=== PATIENT | female | born 1950 | race Caucasian/White ===

== ENCOUNTER 2016-12-16 20:20 | Emergency (ER) | payer OTHER, MEDICARE ==
--- NOTE | 2016-12-16 20:29 | PDOC ---
History of Present Illness - History of Present Illness Initial Comments: 12/16/16 21:34 Patient is a 66 year old female with significant medical hx of hypothyroidism and hypertension who is presenting to the ED with intermittent chest pain for three days. Two days ago the patient had some mild chest pain that returned today. She complains of centralized chest pain with some radiation to her right chest, specifically beneath her right breast, that she characterizes as a burning sensation. The patient states that the burning she feels is similar to the burning experienced during exercise. She notes that the past two days she has been cleaning out her pool which involved lifting heavy material. Patient reports that her pain worsened after a hot shower today but denies any worsening with deep breath or movement. The patient endorses some increased belching and having a lot of stressors in her life right now. She states that she hasnt eaten much in the past week due to stress and endorses some constipation. Denies cough, shortness of breath, generalized weakness, fever, chills, nausea, vomiting, diarrhea. Patient reports a history of gastritis when she was younger. PCP: Benjamin Vega MD Social Hx: Former tobacco smoker for 15 years. FHx: Mother of [place]. Sister had a stroke in her late 40s and is a diabetic. Allergies: Erythromycin base <Chelle Thomas - Last Filed: 12/16/16 21:39> <Laquita Martinez - Last Filed: 12/17/16 06:27> - General Chief Complaint: Pain Stated Complaint: EPIGASTRIC PAIN Time Seen by Provider: 12/16/16 20:23 Past History <Chelle Thomas - Last Filed: 12/16/16 21:39> - Past Medical History Anemia: No Asthma: No Cancer: No Cardiac Disorders: No CVA: No COPD: No CHF: No Dementia: No Diabetes: No GI Disorders: No Disorders: No HTN: Yes Hypercholesterolemia: No Liver Disease: No Seizures: No Thyroid Disease: Yes (HYPOTHYROIDISM) - Surgical History Abdominal Surgery: No Appendectomy: No Cardiac Surgery: No Cholecystectomy: No Lung Surgery: No Neurologic Surgery: No Orthopedic Surgery: No - Psycho/Social/Smoking Cessation Hx Smoking History: Former smoker Have you smoked in the past 12 months: No Number of Cigarettes Smoked Daily: 0 If you are a former smoker, when did you quit?: 20 YEARS Hx Alcohol Use: Yes Drug/Substance Use Hx: No Substance Use Type: Alcohol Hx Substance Use Treatment: No <Laquita Martinez - Last Filed: 12/17/16 06:27> - Past Medical History Allergies/Adverse Reactions: Allergies Allergy/AdvReac Type Severity Reaction Status Date / Time erythromycin base AdvReac Nausea Verified 12/16/16 20:37 Home Medications: Ambulatory Orders Alprazolam [Xanax] 0.25 mg PO DAILY PRN 12/16/16 Review of Systems - Review of Systems Comments:: 12/16/16 21:35 CONSTITUTIONAL: Absent: fever, chills, diaphoresis, generalized weakness, malaise HEENT: Absent: rhinorrhea, nasal congestion, throat pain, throat swelling, difficulty swallowing, mouth swelling, ear pain, eye pain, visual changes CARDIOVASCULAR: Present: chest pain Absent: syncope, palpitations, irregular heart rate, lightheadedness, peripheral edema RESPIRATORY: Absent: cough, shortness of breath, dyspnea with exertion, orthopnea, wheezing, stridor, hemoptysis GASTROINTESTINAL: Present: belching, constipation Absent: abdominal pain, abdominal distension, nausea, vomiting, diarrhea, melena , hematochezia GENITOURINARY: Absent: dysuria, frequency, urgency, hesitancy, hematuria, flank pain, genital pain MUSCULOSKELETAL: Absent: myalgia, arthralgia, joint swelling SKIN: Absent: rash, itching, pallor HEMATOLOGIC/IMMUNOLOGIC: Absent: easy bleeding, easy bruising, lymphadenopathy, frequent infections ENDOCRINE: Absent: unexplained weight gain, unexplained weight loss, heat intolerance, cold intolerance NEUROLOGIC: Absent: headache, focal weakness or paresthesia, dizziness, unsteady gait, seizure, mental status changes, bladder or bowel incontinence. PSYCHIATRIC: Absent: anxiety, depression, suicidal or homicidal ideation, hallucinations <Chelle Thomas - Last Filed: 12/16/16 21:39> *Physical Exam - Vital Signs Last Vital Signs Temp Pulse Resp BP Pulse Ox 98.1 F 87 20 184/95 98 12/16/16 20:22 12/16/16 20:22 12/16/16 20:22 12/16/16 20:22 12/16/16 20:22 - Physical Exam Comments: 12/16/16 21:36 GENERAL: The patient is awake, alert, and fully oriented, in no acute distress. HEAD: Normal with no signs of trauma. EYES: Pupils equal, round and reactive to light, extraocular movements intact, sclera anicteric, conjunctiva clear with no pallor. ENT: Ears normal, nares patent, oropharynx clear without exudates. Moist mucous membranes. NECK: Normal range of motion, supple without lymphadenopathy, JVD, or masses. LUNGS: Breath sounds equal, clear to auscultation bilaterally. No wheeze/ crackles. CHEST: Mild tenderness of the right lower anterior chest wall at the fifth intercostal space just lateral to the sternum without crepitus or step off palpated. No edema, erythema, or fluctuance. HEART: Regular rate and rhythm, normal S1 and S2 without murmur or rub. ABDOMEN: Soft/nontender/nondistended. BS wnl. No guarding or rebound. No palpable masses. No hepatosplenomegaly. EXTREMITIES: Normal range of motion, no edema. No clubbing or cyanosis. No cords, erythema, or tenderness. NEUROLOGICAL: Cranial nerves II through XII grossly intact. Normal speech, normal gait. PSYCH: Normal mood, normal affect. SKIN: Warm, Dry, normal turgor, no rashes or lesions noted. <Chelle Thomas - Last Filed: 12/16/16 21:39> Heart Score/ECG Review #1 12/16/16 21:37 Normal sinus rhythm at 79 bpm Normal ECG <Chelle Thomas - Last Filed: 12/16/16 21:39> ED Treatment Course - LABORATORY CBC & Chemistry Diagram: 12/16/16 21:08 12/16/16 21:08 - ADDITIONAL ORDERS Additional order review: 12/16/16 21:08 RBC 3.57 L MCV 91.6 MCHC 36.3 H RDW 17.7 H MPV 7.9 Neutrophils % 74.8 Lymphocytes % 16.2 D Monocytes % 5.5 Eosinophils % 1.6 Basophils % 1.9 D <Chelle Thomas - Last Filed: 12/16/16 21:39> - LABORATORY CBC & Chemistry Diagram: 12/16/16 21:08 12/16/16 21:08 <Laquita Martinez - Last Filed: 12/17/16 06:27> Progress Note - Progress Note Progress Note: Documentation has been prepared under my direction and personally reviewed by me in its entirety. I attest that this documented accurately reflects all work, treatment, procedures and medical decision making performed by me. <Laquita Martinez - Last Filed: 12/17/16 06:27> Medical Decision Making - Medical Decision Making As noted above, this 66-year-old woman with a history of hypertension and anxiety presents with a few day history of right-sided lower anterior chest pain. Of note in patient's history is that she was lifting heavy material while cleaning her pool yesterday and today. No associated diaphoresis/nausea/ shortness of breath. The pain is not pleuritic. Cardiac risk factors: Hypertension/family history. Patient takes daily dose of Avapro for her high blood pressure. She has been taking this as prescribed. Physical exam is notable for tenderness of the chest wall in the area the patient has pain. Although the patient states that she thinks area is "swollen ", no obvious edema/erythema/fluctuance is present. There is no rash. Patient states that she has had immunization for zoster. Abdominal exam is normal with patient having no epigastric or other abdominal tenderness present. No masses are noted. Workup of CBC/chemistry profile/lipase/cardiac enzymes/urinalysis performed 12-lead electrocardiogram shows normal sinus rhythm at 72 bpm as noted above. There is no evidence of acute ST or T wave abnormalities. [place], intervals and wave forms are all normal Laboratory evaluation notable for BUN of 35 with a creatinine of 1.0. Doubt this is related to gastrointestinal bleeding in light of patient's lack of abdominal pain and abdominal tenderness. Patient states that she drinks very little water and her mucus membranes are dry; more likely moderate prerenal azotemia Cardiac enzymes are not elevated. CBC notable for borderline low hematocrit of 32.7. Patient is now comfortable and refusing any medications for pain relief. She will be discharged with instructions to follow up with Dr. Quinn within the next 48 hours She should return to the emergency room if she has recurrence of her pain or develops vomiting/fever/black stools/shortness of breath <Laquita Martinez - Last Filed: 12/17/16 06:27> *DC/Admit/Observation/Transfer - Attestations Scribe Attestion: 12/16/16 21:38 Documentation prepared by Chelle Thomas, acting as medical billing coder for Laquita Martinez MD. <MarthaChelle - Last Filed: 12/16/16 21:39> <Laquita Martinez - Last Filed: 12/17/16 06:27> Diagnosis at time of Disposition: Atypical chest pain - Discharge Dispostion Disposition: HOME Condition at time of disposition: Stable - Referrals Referrals: Benjamin Vega MD [Staff Physician] - - Patient Instructions Printed Discharge Instructions: DI for Atypical Chest Pain Additional Instructions: Rest; avoid strenuous activity for the next few days Drink plenty of fluids Ibuprofen/naproxen/acetaminophen as needed for pain Return to ER if you have severe, persistent chest pain or experience shortness of breath/nausea Follow-up with Dr. Vega within the next 2 days
[2016-12-16 20:43] VITALS: PULSE 87; TEMP 98.1; BMI 26.2
[2016-12-16 21:27] LABS: BASO % 1.9 % (0-2.0); EOS % 1.6 % (0-4.5); HEMATOCRIT 32.7 % (32.4-45.2); HEMOGLOBIN 11.9 GM/dl (10.7-15.3); LYMPH % 16.2 % (8-40); MCH 33.3 pg (25.7-33.7); MCHC 36.3 g/dl (32.0-36.0); MEAN CELL VOLUME 91.6 fl (80-96); MEAN PLT VOLUME 7.9 fl (7.5-11.1); MONO % 5.5 % (3.8-10.2); NEUT % 74.8 % (42.8-82.8); PLATELET COUNT 204 K/MM3 (134-434); RBC 3.57 M/mm3 (3.60-5.2); RDW 17.7 % (11.6-15.6); WHITE BLOOD COUNT 7.9 K/mm3 (4.0-10.8)
[2016-12-16 21:31] LABS: INR 1.13 (0.82-1.09); PROTHROMBIN TIME (PATIENT) 12.6 SEC (10.2-13.0)
[2016-12-16 22:07] LABS: TROPONIN I (DFP) < 0.03 ng/ml (0.03-0.50)
[2016-12-16 22:26] LABS: ALBUMIN 4.6 g/dl (3.5-5.0); ALK PHOS 78 U/L (32-92); ANION GAP 12 (8-16); BILIRUBIN,TOTAL 1.5 mg/dl (0.2-1.0); BLOOD UREA NITROGEN 35 mg/dl (7-18); CALCIUM 9.5 mg/dl (8.4-10.2); CHLORIDE 106 mmol/L (98-107); CO2 22 mmol/L (22-28); GLUCOSE,RANDOM 141 mg/dl (74-106); POTASSIUM 4.9 mmol/L (3.5-5.1); SGOT/AST 35 U/L (10-42); SGPT/ALT 15 U/L (10-40); SODIUM 140 mmol/L (136-145); TOT PROT 6.8 g/dl (6.4-8.3)
[2016-12-16 22:52] VITALS: BP 133/63
[2016-12-16 22:58] LABS: CPK(DFH) 77 IU/L (26-140)
--- NOTE | 2016-12-17 17:53 | EKG ---
Test Reason : Blood Pressure : / mmHG Vent. Rate : 079 BPM Atrial Rate : 079 BPM P-R Int : 128 ms QRS Dur : 070 ms QT Int : 364 ms P-R-T Axes : 025 022 039 degrees QTc Int : 417 ms NORMAL SINUS RHYTHM NO PREVIOUS ECGS AVAILABLE Confirmed by MD BOLES MARJORY ([id number]) on 12/17/2016 5:52:48 PM Referred By: MD BLACK Confirmed By:MORE BOLES MD
== END 2016-12-16 22:55 | disposition home or self-care (01) ==
LOC: FER 20:20
DX: R07.89 Other chest pain (principal); Z87.891 Personal history of nicotine dependence; I10 Essential (primary) hypertension; E03.9 Hypothyroidism, unspecified
CPT/HCPCS: 36415; 80053; 82550; 83690; 83735; 84484; 85025; 85610; 93005; 93010; 99283-25

== ENCOUNTER 2023-11-03 09:19 | Day surgery (SDC) | payer OTHER, MEDICARE ==
[2023-10-28 13:18] VITALS: BMI 30.9
[2023-11-03] MEDS: PHENYLEPHRINE 2.5% OPTHALMIC DROP 2ML BOTTLE ONE (09:55)
[2023-11-03] MEDS: CYCLOPENTOLATE 2% OPHTH SOLN 2 ML BOTTLE ONE (09:55)
[2023-11-03] MEDS: CIPROFLOXACIN 0.3% EYE DROPS 5 ML BOTTLE ONE (09:55)
[2023-11-03] MEDS: TROPICAMIDE 1% OPHTH SOLN 15 ML BOTTLE ONE (09:55)
[2023-11-03] MEDS ORDERED: NEO/POLYMYX B SULF/DEXAMETH OPHTHALMIC 5ML BOTTLE ONE (11:09)
[2023-11-03] MEDS ORDERED: CARBACHOL 0.01% INTRA-OCULAR 1.5 ML VIAL ONE (11:09)
[2023-11-03] MEDS ORDERED: TETRACAINE 0.5% OPHTH SOLN 2 ML BOTTLE ONE (11:09)
[2023-11-03] MEDS ORDERED: BSS (NA/CA/MG/K) BALANCED SALT SOLUTION OPHTH SOLN 15 ML BOTTLE ONE (11:09)
[2023-11-03] MEDS ORDERED: LIDOCAINE 1% P/F 10 MG/ML VIAL ONE (11:09)
[2023-11-03] MEDS ORDERED: MIDAZOLAM HCL 2 MG/2 ML SINGLE DOSE VIAL ONE (11:24)
[2023-11-03 13:39] VITALS: TEMP 97.1
[2023-11-03 14:04] VITALS: RESP 17
[2023-11-03 14:06] VITALS: BP 120/64; PULSE 68
== END 2023-11-03 13:00 | disposition home or self-care (01) ==
LOC: FASU 09:19
PROVIDERS: ATTEND Ophthalmology
PROC: 08RK3JZ Replacement of Left Lens with Synthetic Substitute, Percutaneous Approach (ICD-10-PCS; principal; 2023-11-03 12:00)
DX: H26.8 Other specified cataract (principal)
CPT/HCPCS: 66984; V2632

== ENCOUNTER 2023-12-30 07:12 | Day surgery (SDC) | payer OTHER, MEDICARE ==
[2023-12-28 12:05] VITALS: BMI 29.2
[2023-12-30] MEDS ORDERED: TETRACAINE 0.5% OPHTH SOLN 2 ML BOTTLE ONE (07:15)
[2023-12-30] MEDS ORDERED: LIDOCAINE 1% P/F 10 MG/ML VIAL ONE (07:15)
[2023-12-30] MEDS ORDERED: EPINEPHrine/PF 1 MG/1 ML (1:1,000) AMPULE ONE (07:15)
[2023-12-30] MEDS ORDERED: BSS (NA/CA/MG/K) BALANCED SALT SOLUTION OPHTH SOLN 15 ML BOTTLE ONE (07:16)
[2023-12-30] MEDS ORDERED: CARBACHOL 0.01% INTRA-OCULAR 1.5 ML VIAL ONE (07:17)
[2023-12-30] MEDS ORDERED: NEO/POLYMYX B SULF/DEXAMETH OPHTHALMIC 5ML BOTTLE ONE (07:17)
[2023-12-30] MEDS: TROPICAMIDE 1% OPHTH SOLN 15 ML BOTTLE ONE (07:30)
[2023-12-30] MEDS: PHENYLEPHRINE 2.5% OPTHALMIC DROP 2ML BOTTLE ONE (07:30)
[2023-12-30] MEDS: CIPROFLOXACIN 0.3% EYE DROPS 5 ML BOTTLE ONE (07:30)
[2023-12-30] MEDS: CYCLOPENTOLATE 2% OPHTH SOLN 2 ML BOTTLE ONE (07:30)
[2023-12-30] MEDS ORDERED: MIDAZOLAM HCL 2 MG/2 ML SINGLE DOSE VIAL ONE ×2 (08:13→08:34)
[2023-12-30] MEDS ORDERED: TOBRA 0.3%/DEXAMETH 0.1% OPHTHALMIC SUSP 2.5 ML BTL ONE (08:25)
[2023-12-30 15:12] VITALS: BP 100/56; PULSE 65; RESP 16; TEMP 97.5
== END 2023-12-30 09:35 | disposition home or self-care (01) ==
LOC: FASU 07:12
PROVIDERS: ATTEND Ophthalmology
PROC: 08RJ3JZ Replacement of Right Lens with Synthetic Substitute, Percutaneous Approach (ICD-10-PCS; principal; 2023-12-30 08:33)
DX: H26.8 Other specified cataract (principal)
CPT/HCPCS: 66984; V2632